=== PATIENT | male | born 1965 | race Caucasian/White ===

== ENCOUNTER → 2017-01-25 | Outpatient (REF) | payer OTHER ==
[~2017-01-25] MED LIST: ATOR40TA PO; AUGM875T27 PO; COLA100C3 PO; CYCL10TA PO; GABA-282 PO; HYDR-3713 PO; KETO30IN4 IM; LISI10TA4 PO; NAPR500T2 PO; NEUR300C PO; NEUR600T PO; NORCOTAB PO; ONDA4VLL IVP; PERC5TAB6 PO; SIMV40TA2 PO; ZOFR4SOL PO; ZOSY3INJ2 IV; [UNRECOGNIZED DRUG - CODE] IV; [UNRECOGNIZED DRUG - CODE] IVP
[2017-01-25 13:16] LABS: ALBUMIN 3.8 GM/DL (3.2-5.2); ALBUMIN/GLOBULIN RATIO 1.12 (1.00-1.93); ALKALINE PHOSPHATASE 100 U/L (45-117); ALT/SGPT 52 U/L (12-78); ANION GAP 7 MEQ/L (8-16); AST/SGOT 26 U/L (15-37); BILIRUBIN,TOTAL 0.5 MG/DL (0.2-1.0); BLOOD UREA NITROGEN 17 MG/DL (7-18); CALCIUM LEVEL 9.1 MG/DL (8.5-10.1); CARBON DIOXIDE LEVEL 30 MEQ/L (21-32); CHLORIDE LEVEL 102 MEQ/L (98-107); CREATININE FOR GFR 0.92 MG/DL (0.70-1.30); GLOMERULAR FILTRATION RATE > 60.0 (>60); GLUCOSE, FASTING 106 MG/DL (70-105); POTASSIUM SERUM 4.5 MEQ/L (3.5-5.1); SODIUM LEVEL 139 MEQ/L (136-145); TOTAL PROTEIN 7.2 GM/DL (6.4-8.2)
== END ==
LOC: M SFHCCLAY 09:16
PROVIDERS: ATTEND Family Medicine
DX: I10 Essential (primary) hypertension (principal)

== ENCOUNTER → 2017-07-18 | Outpatient (CLI) | payer OTHER ==
[~2017-07-18] MED LIST changes: -ATOR40TA PO; +ATOR40TA75 PO; -AUGM875T27 PO; +AUGM875T28 PO; -COLA100C3 PO; +COLA100C5 PO; -NAPR500T2 PO; +NAPR500T3 PO; +PERC5TAB12 PO; -PERC5TAB6 PO
--- NOTE | 2017-07-18 12:30 | REP ---
Clinical: bronchitis and persistent cough. Comparison: none. Technique: PA and lateral. Findings: The mediastinum and cardiac silhouette are normal. The lung wright are clear and without acute consolidation, effusion, or pneumothorax. The skeletal structures are intact and normal. Impression: 1. No acute cardiopulmonary process. Signed by Dwaine Anne MD 07/18/2017 12:22 P
== END ==
LOC: M CLY 11:50
PROVIDERS: ATTEND Nurse Practitioner Family
DX: J40 Bronchitis, not specified as acute or chronic (principal)

== ENCOUNTER → 2017-08-10 | Outpatient (REF) | payer OTHER | LOC: M SFHCCLAY 14:48 | PROVIDERS: ATTEND Family Medicine | DX: E78.5 Hyperlipidemia, unspecified (principal) ==

== ENCOUNTER → 2017-10-29 | Outpatient (REF) | payer OTHER ==
[2017-10-29 18:58] LABS: ALBUMIN 4.2 GM/DL (3.2-5.2); ALBUMIN/GLOBULIN RATIO 1.24 (1.00-1.93); ALKALINE PHOSPHATASE 91 U/L (45-117); ALT/SGPT 41 U/L (12-78); ANION GAP 7 MEQ/L (8-16); AST/SGOT 26 U/L (7-37); BILIRUBIN,TOTAL 0.4 MG/DL (0.2-1.0); BLOOD UREA NITROGEN 15 MG/DL (7-18); CALCIUM LEVEL 9.1 MG/DL (8.5-10.1); CARBON DIOXIDE LEVEL 29 MEQ/L (21-32); CHLORIDE LEVEL 105 MEQ/L (98-107); CHOLESTEROL LEVEL 195 MG/DL (<200); CHOLESTEROL RISK RATIO 4.875 (<5); CREATININE FOR GFR 1.12 MG/DL (0.70-1.30); GLOMERULAR FILTRATION RATE > 60.0 (>56); GLUCOSE, FASTING 101 MG/DL (70-100); HDL CHOLESTEROL 40 MG/DL (>40); LDL CHOLESTEROL 117.2 MG/DL (<100); NON-HDL-C 155 MG/DL; POTASSIUM SERUM 4.3 MEQ/L (3.5-5.1); SODIUM LEVEL 141 MEQ/L (136-145); TOTAL PROTEIN 7.6 GM/DL (6.4-8.2); TRIGLYCERIDES LEVEL 189 MG/DL (<150)
== END ==
LOC: M SFHCCLAY 10:52
DX: E78.5 Hyperlipidemia, unspecified (principal)

== ENCOUNTER → 2018-08-13 | Outpatient (REF) | payer OTHER ==
[~2018-08-13] MED LIST changes: -GABA-282 PO; +GABA-843 PO; +NAPR-885 PO; -NAPR500T3 PO
[2018-08-13 17:28] LABS: ALBUMIN 3.8 GM/DL (3.2-5.2); ALT/SGPT 36 U/L (12-78); BILIRUBIN,TOTAL 0.4 MG/DL (0.2-1.0); BLOOD UREA NITROGEN 17 MG/DL (7-18); CALCIUM LEVEL 8.8 MG/DL (8.5-10.1); CARBON DIOXIDE LEVEL 31 MEQ/L (21-32); CHLORIDE LEVEL 106 MEQ/L (98-107); CHOLESTEROL LEVEL 162 MG/DL (<200); CHOLESTEROL RISK RATIO 4.153 (<5); CREATININE FOR GFR 1.12 MG/DL (0.70-1.30); GLOMERULAR FILTRATION RATE > 60.0 (>56); GLUCOSE, FASTING 100 MG/DL (70-100); HDL CHOLESTEROL 39 MG/DL (>40); LDL CHOLESTEROL 104 MG/DL (<100); NON-HDL-C 123 MG/DL; POTASSIUM SERUM 4.5 MEQ/L (3.5-5.1); SODIUM LEVEL 140 MEQ/L (136-145); TOTAL PROTEIN 6.9 GM/DL (6.4-8.2); TRIGLYCERIDES LEVEL 94 MG/DL (<150)
== END ==
LOC: M SFHCCLAY 10:00
PROVIDERS: ATTEND Family Medicine
DX: E78.5 Hyperlipidemia, unspecified (principal)

== ENCOUNTER → 2019-02-13 | Outpatient (REF) | payer OTHER ==
[~2019-02-13] MED LIST changes: +HYDR-3715 PO; -NORCOTAB PO
[2019-02-13 12:31] LABS: ALBUMIN 3.9 GM/DL (3.2-5.2); ALT/SGPT 36 U/L (12-78); BILIRUBIN,TOTAL 0.5 MG/DL (0.2-1.0); BLOOD UREA NITROGEN 19 MG/DL (7-18); CALCIUM LEVEL 8.7 MG/DL (8.5-10.1); CARBON DIOXIDE LEVEL 29 MEQ/L (21-32); CHLORIDE LEVEL 105 MEQ/L (98-107); CHOLESTEROL LEVEL 145 MG/DL (<200); CHOLESTEROL RISK RATIO 3.625 (<5); CREATININE FOR GFR 1.19 MG/DL (0.70-1.30); GLOMERULAR FILTRATION RATE > 60.0 (>56); GLUCOSE, FASTING 109 MG/DL (70-100); HDL CHOLESTEROL 40 MG/DL (>40); LDL CHOLESTEROL 80 MG/DL (<100); NON-HDL-C 105 MG/DL; POTASSIUM SERUM 4.2 MEQ/L (3.5-5.1); SODIUM LEVEL 140 MEQ/L (136-145); TOTAL PROTEIN 7.3 GM/DL (6.4-8.2); TRIGLYCERIDES LEVEL 124 MG/DL (<150)
== END ==
LOC: M SFHCCLAY 08:12
PROVIDERS: ATTEND Family Medicine
DX: I10 Essential (primary) hypertension (principal); E78.5 Hyperlipidemia, unspecified

== ENCOUNTER → 2022-03-16 | Outpatient (REF) | payer OTHER ==
[~2022-03-16] MED LIST changes: +CYCL-707 PO; -CYCL10TA PO; +GABA-282 PO; -GABA-843 PO; +LISI10TA22 PO; -LISI10TA4 PO; -SIMV40TA2 PO; +SIMV40TA20 PO
== END ==
LOC: M SFHCCLAY 13:51
PROVIDERS: ATTEND Physician Assistant
DX: R09.81 Nasal congestion (principal)

== ENCOUNTER → 2022-10-24 | Outpatient (REF) | payer BC ==
[2022-10-24 17:11] LABS: ALBUMIN 3.9 G/DL (3.2-5.2); ALKALINE PHOSPHATASE 91 U/L (46-116); ALT/SGPT 28 U/L (7.0-40); AST/SGOT 30 U/L (<34); BILIRUBIN,TOTAL 0.5 MG/DL (0.3-1.2); BLOOD UREA NITROGEN 12 MG/DL (9-23); CALCIUM LEVEL 8.7 MG/DL (8.5-10.1); CARBON DIOXIDE LEVEL 30 MMOL/L (20-31); CHLORIDE LEVEL 106 MMOL/L (98-107); CHOLESTEROL LEVEL 139 MG/DL (<200); CHOLESTEROL RISK RATIO 3.94 (<5); CREATININE FOR GFR 0.99 MG/DL (0.70-1.30); GLOMERULAR FILTRATION RATE > 60.0 (>56); GLUCOSE, FASTING 96 MG/DL (60-100); HDL CHOLESTEROL 35.2 MG/DL (>40); LDL CHOLESTEROL 82.4 MG/DL (<100); NON-HDL-C 104 MG/DL; POTASSIUM SERUM 4.4 MMOL/L (3.5-5.1); SODIUM LEVEL 139 MMOL/L (136-145); TOTAL PROTEIN 6.9 G/DL (5.7-8.2); TRIGLYCERIDES LEVEL 107 MG/DL (<150)
[2022-10-24 17:13] LABS: BASO % 0.3 % (0.0-1.0); EOS # 0.1 10^3/uL (0.0-0.5); EOS % 1.9 % (0.0-3.0); HEMATOCRIT 45.3 % (42.0-52.0); HEMOGLOBIN 14.8 g/dl (13.5-17.5); LYMPH # 1.9 10^3/uL (1.5-5.0); LYMPH % 26.4 % (24.0-44.0); MEAN CORPUSCULAR HEMOGLOBIN 29.7 pg (27.0-33.0); MEAN CORPUSCULAR HGB CONC 32.7 g/dl (32.0-36.5); MEAN CORPUSCULAR VOLUME 90.8 fl (80.0-96.0); MONO # 0.7 10^3/uL (0.0-0.8); MONO % 9.5 % (2.0-8.0); NEUTROPHILS # 4.5 10^3/uL (1.5-8.5); NEUTROPHILS % 61.6 % (36.0-66.0); PLATELET COUNT, AUTOMATED 227 10^3/uL (150-450); RED BLOOD COUNT 4.99 10^6/uL (4.30-6.10); WHITE BLOOD COUNT 7.2 10^3/uL (4.0-10.0)
[2022-10-24 17:50] LABS: HEMOGLOBIN A1c 5.9 % (4.0-6.0)
== END ==
LOC: M SFHCCLAY 12:20
PROVIDERS: ATTEND Family Medicine
DX: I10 Essential (primary) hypertension (principal); E78.5 Hyperlipidemia, unspecified; R73.01 Impaired fasting glucose

== ENCOUNTER → 2024-01-03 | Outpatient (REF) | payer OTHER ==
[2024-01-03 18:53] LABS: HEMATOCRIT 44.7 % (42.0-52.0); MEAN CORPUSCULAR HEMOGLOBIN 30.4 pg (27.0-33.0); MEAN CORPUSCULAR HGB CONC 33.6 g/dl (32.0-36.5); MEAN CORPUSCULAR VOLUME 90.5 fl (80.0-96.0); PLATELET COUNT, AUTOMATED 231 10^3/uL (150-450); RED BLOOD COUNT 4.94 10^6/uL (4.30-6.10); WHITE BLOOD COUNT 6.4 10^3/uL (4.0-10.0)
[2024-01-03 19:08] LABS: HEMOGLOBIN A1c 5.6 % (4.0-6.0)
[2024-01-03 19:16] LABS: ALBUMIN 3.7 G/DL (3.2-5.2); ALKALINE PHOSPHATASE 91 U/L (46-116); ALT/SGPT 31 U/L (7.0-40); AST/SGOT 26 U/L (<34); BILIRUBIN,TOTAL 0.6 MG/DL (0.3-1.2); BLOOD UREA NITROGEN 14 MG/DL (9-23); CALCIUM LEVEL 9.5 MG/DL (8.5-10.1); CARBON DIOXIDE LEVEL 29 MMOL/L (20-31); CHLORIDE LEVEL 105 MMOL/L (98-107); CHOLESTEROL LEVEL 165 MG/DL (<200); CHOLESTEROL RISK RATIO 3.68 (<5); CREATININE FOR GFR 1.09 MG/DL (0.70-1.30); GLOMERULAR FILTRATION RATE > 60.0 (>56); GLUCOSE, FASTING 88 MG/DL (60-100); HDL CHOLESTEROL 44.8 MG/DL (>40); LDL CHOLESTEROL 98.8 MG/DL (<100); NON-HDL-C 120.2 MG/DL; POTASSIUM SERUM 4.6 MMOL/L (3.5-5.1); SODIUM LEVEL 138 MMOL/L (136-145); TOTAL PROTEIN 6.9 G/DL (5.7-8.2); TRIGLYCERIDES LEVEL 107 MG/DL (<150)
== END ==
LOC: M SFHCCLAY 15:00
PROVIDERS: ATTEND Family Medicine
DX: E78.5 Hyperlipidemia, unspecified (principal); I10 Essential (primary) hypertension; R73.01 Impaired fasting glucose